=== PATIENT | male | born 1935 | race Caucasian/White ===

== ENCOUNTER → 2016-05-25 | Outpatient (CLI) | payer MEDICARE, BC ==
[~2016-05-25] MED LIST: ACTIGALL300 M1 PO; ALDACTONE25 MG PO; AMPICILLIN TRI500 MG PO; ARTIFICIAL TEAR15 ML OPHTH; ASPIRIN EC325 MG PO; B COMPLETE1 EACH PO; BACTRIM DS1 TAB PO; CALCIUM 500 +1 EAC2 PO; CENTRUM SILVER1 TAB PO; CIPRO500 MG; CIPRO500 MG PO; CLARITIN10 MG PO; DEBROX,CARBAMID15 ML OTIC; DIFLUCAN100 MG PO; FLOMAX0.4 MG PO; IMODIUM2 MG PO; INVANZ 1 G1 GM/100 M IV; KEFLEX500 MG PO; LACTINEX (FLORA1 TAB PO; LAMISIL AT 1% CRE1 % TOP; LEXAPRO20 MG PO; MECLIZINE HCL25 MG PO; MICONAZOLE100 GM TOP; MOBIC15 MG PO; NEURONTIN600 MG PO; NORVASC5 MG PO; PRINIVIL OR ZES10 MG PO; PROBIOTIC1 EAC1 PO; PROTONIX40 MG PO; SALINE NASAL M126 ML NOSE; TYLENOL EXTRA500 MG PO; VITAMIN B-12500 MCG PO; VITAMIN D1000 UNIT PO; ZYPREXA2.5 MG PO; [UNRECOGNIZED DRUG - OTHER] IV
--- NOTE | ~2016-05-25 | ECHO ---
Transthoracic Echocardiography Report (TTE) Demographics Patient Name KURT PEREZ Date of Study 05/25/2016 D Patient Number [id number] Visit Number [id number] Date of 1935 Room Number Accession Number [id number] Gender Male Age 81 year(s) Referring Chance Dennis MD Manager Community Development Ely Gibson Physician RDCS Physician Interpreting Ector Escalera MD Software Performance Engineer Physician Supervising Ordering Physician /MLP Nurse Stress Electrical Instrument Technician Conclusions Contractility Score Summary Normal Left Ventricular contractility was noted. Summary Technically difficult exam. The estimated left ventricular ejection fraction is 60%. Mild concentric left ventricular hypertrophy. Diastolic assessment reveals Grade I diastolic dysfunction. The left atrium is mildly dilated by LA volume index measurement. There is moderate aortic regurgitation by color Doppler. Mild tricuspid regurgitation by color Doppler. There is mild pulmonary hypertension. The pulmonary pressure (RVSP) is 37 mmHg. Procedure Type of Study TTE procedure:2D Echocardiogram. Procedure Date Date: 05/25/2016 Start: 03:41 PM Study Location: Inpatient Portable Indications:Fatigue. Additional Indications:Dizziness Appropriate Use Criteria: 9 Patient Status: Routine HR: 62 bpm BP: 144/65 mmHg M-Mode/2D Measurements LV Diastolic Dimension: 5.55 cm LV Systolic Dimension: 3.62 cm LV Septum Diastolic: 1.18 cm LV PW Diastolic: 1.2 cm AO Root Dimension: 2.5 cm Cardiac Output: 4.55 l/min AV Cusp Separation: 2.5 cm RV Diastolic Dimension: 3.26 cm LA volume: 77 ml LVOT: 2.2 cm LVOT VTI: 19.3 cm TAPSE: 2.78 cm LV Stroke volume: 73.33 ml Doppler Measurements AV Peak Velocity: 1.05 m/s MV Peak E-Wave: 0.5 m/s AV Peak Gradient: 4.41 mmHg MV Peak A-Wave: 0.84 m/s AV Mean Gradient: 2 mmHg MV E/A Ratio: 0.59 LVOT Peak Velocity: 0.96 m/s MV P1/2t: 68 msec AV P1/2t: 474 msec TR Gradient:27.25 mmHg PV Peak Velocity: 0.85 m/s Estimated RAP:10 mmHg PV Peak Gradient: 2.92 mmHg Estimated RVSP: 37 mmHg Estimated PASP: 37.25 mmHg E' Septal Velocity: 0.05 m/s A' Septal Velocity: 0.11 m/s E' Lateral Velocity: 0.06 m/s A' Lateral Velocity: 0.12 m/s Findings Left Ventricle Mild concentric left ventricular hypertrophy. Diastolic assessment reveals Grade I diastolic dysfunction. Right Ventricle Normal right ventricle structure and function. Left Atrium The left atrium is mildly dilated by LA volume index measurement. Right Atrium Normal right atrial size. Mitral Valve Trivial mitral regurgitation by color Doppler. Aortic Valve There is moderate aortic regurgitation by color Doppler. Tricuspid Valve Mild tricuspid regurgitation by color Doppler. There is mild pulmonary hypertension. The pulmonary pressure (RVSP) is 37 mmHg. Pulmonic Valve Normal pulmonic valve structure and function. Pericardial Effusion No evidence of pericardial effusion. Miscellaneous Visualized portions of the aortic root and ascending aorta appear normal in size. Contractility Score LV regional wall motion:(0-Non visualized 1-Normal 2-Hypokinesis 3-Akinesis 4-Dyskinesis 5-Aneurysm) Signature dtt: Jw Barney (cardio) dtd: 05/25/16 1541 Physician Self Edit
== END | disposition disaster alternative care site (69) ==
LOC: GCAR 15:13
DX: R53.82 Chronic fatigue, unspecified (principal); I08.2 Rheumatic disorders of both aortic and tricuspid valves; I27.2 Other secondary pulmonary hypertension; R42 Dizziness and giddiness

== ENCOUNTER 2016-08-06 17:28 | Inpatient (IN) | payer MEDICARE, BC ==
[~2016-08-06] VITALS: Ht 177.8 cm; Wt 85.0 kg
--- NOTE | ~2016-08-06 | HP ---
PATIENT'S NAME: KURT PEREZ [facility] AGE: 81 Y [address] ROOM: [place] [address] LOCATION: [facility] [place] ADMIT DATE: 08/06/2016 History & Physical DISCHARGE DATE: FAMILY PHYSICIAN: NEFTALI BARON MD ATTENDING PHYSICIAN: ELI LIZARRAGA DATE OF SERVICE: CHIEF COMPLAINT: Sepsis, secondary to urinary tract infection. HISTORY OF PRESENT ILLNESS: This is an 81-year-old male who presented to the emergency room with complaints of confusion over the past 2-3 days. The patient's father who is by the bedside reports to me that the patient is generally very independent and lives by himself, but since about yesterday evening while she was talking to him, he was not making a lot of sense, which is very unusual for him, and this confusion continued to worsen and that is when he decided to bring him in here. The patient of note does have a history of recurrent UTI. The patient also reports decreased appetite and decreased p.o. intake over the past several days with some associated nausea and abdominal discomfort in the suprapubic area. The patient also reports some subjective fevers. The patient otherwise denies any cough, shortness of breath, dizziness, lightheadedness, diarrhea, or constipation. PAST MEDICAL HISTORY: The patient has a history of gastric disease, history of recurrent UTIs. FAMILY HISTORY: The patient has a history of hypertension in the family. SOCIAL HISTORY: The patient lives at home alone. No reports of smoking, alcohol, or drug use. PHYSICAL EXAMINATION: VITAL SIGNS: Blood pressure 148/69, pulse 84, respiratory rate 18, temperature 98.1, and temperature max of 101.2, however. GENERAL: Awake, alert, oriented x3, in no acute distress. HEENT: Dry mucosal membranes; however, no conjunctival pallor or scleral icterus noted. CHEST: Clear to auscultation bilaterally. HEART: S1, S2, regular rate and rhythm. ABDOMEN: Soft, nontender, nondistended with positive bowel sounds. SKIN: Without rash or lesions. Has surgical scar over his right knee. NEURO: Grossly nonfocal. PAT[facility]'S [facility]: [facility] AGE: 81 Y [address] ROOM: [place] [id number] LOCATION: [facility] ADMIT DATE: 08/06/2016 History & Physical DISCHARGE DATE: FAMILY PHYSICIAN: NEFTALI BARON MD ATTENDING PHYSICIAN: ELI LIZARRAGA MUSCULOSKELETAL: No joint swelling, erythema, or tenderness noted. LABORATORY DATA: Laboratory results of significance white blood cell count of 15 and the UA with pyuria and bacteriuria. ASSESSMENT AND PLAN: 1. Sepsis, secondary to urinary tract infection. We will start treating him with intravenous fluids and intravenous Rocephin 1 g daily and continue to monitor clinically. The patient denies having history of benign prostatic hypertrophy or any obstructive uropathy, but this is the 2nd or 3rd time, he has had urinary tract infection, and he probably needs to be evaluated for that at some point as outpatient. 2. Acute encephalopathy, this is related to sepsis, secondary to urinary tract infection. We will manage as above. 3. Hypertension. Continue lisinopril 10 mg daily. 4. History of benign prostatic hypertrophy. Continue home medications. 5. Gastroesophageal reflux disease. Continue proton pump inhibitor therapy. 6. Deep venous thrombosis prophylaxis. We will use subcutaneous heparin. MD CALEB MERINO/alekseyl /[id number] D: [id number] T: [id number] HISTORY & PHYSICAL
--- NOTE | ~2016-08-06 | ER ---
PATIENT'S NAME: [facility] Christa [facility] AGE: 81 Y [address] ROOM: [address] [address] [place] [facility] [place]MIT DATE: 08/06/2016 ER/Outpatient Report DISCHARGE DATE: FAMILY PHYSICIAN: NEFTALI BARON MD ATTENDING PHYSICIAN: ELI AREVALO Time of Arrival: 1731 hours. Time of Exam: 1731 hours. CHIEF COMPLAINT: Confusion. HISTORY OF PRESENT ILLNESS: The patient arrives per wheelchair accompanied by his son. Son is concerned that the patient has had some mental changes this afternoon. The patient does live independently at home. Son had checked on him last night, he seemed fine. Today about 3 hours prior to arrival, the patient's neighbor had called the son, the patient had gone to their house and did not seem to be making sense when he was chatting with him. The patient states he feels okay. He states his right leg is painful, but he has had pain in his right leg ever since he had surgery on it several months ago. ALLERGIES: THE PATIENT HAS NO KNOWN ALLERGIES. CURRENT MEDICATIONS: On his chart and reviewed by me. PAST MEDICAL HISTORY: Gout, hypertension, sleep apnea, vitamin D deficiency, vitamin B12 deficiency, emphysema, and Gaucher disease. PAST SURGERIES: Cholecystectomy, splenectomy, ERCP in November of 2014, total left hip, and surgery of the right knee to remove screws and repair. SOCIAL HISTORY: He does not smoke, quit smoking approximately 6-1/2 years ago. Denies use of drugs and alcohol. He does live alone. REVIEW OF SYSTEMS: All negative other than those mentioned in the HPI. PHYSICAL EXAMINATION: VITAL SIGNS: He weighed 79.9 kg, blood pressure is 154/72, pulse is 97, PATIENT'S NAME: [facility] Christa [facility] AGE: 81 Y [address] ROOM: [address] [address] [place] [facility] [place]MIT DATE: 08/06/2016 ER/Outpatient Report DISCHARGE DATE: FAMILY PHYSICIAN: NEFTALI ABRON MD ATTENDING PHYSICIAN: ELI AREVALO respirations 16, temperature of 102.7 tympanic, and O2 saturation is 91% on room air. Ami Coma Scale is 15. GENERAL: He is awake and alert. He is able to state his name, he knows where he is at, but he does not know the date. He is able to state the president and conference services director. He does have some difficulty expressing his words, but his speech is clear and easy to understand. He is calm and cooperative. SKIN: [place], warm, and dry. He does have a red lacy rash of his upper thighs. CHEST: Respirations are even and nonlabored. Lung sounds are clear throughout. HEART: Regular rate and rhythm. ABDOMEN: Soft, nondistended. Bowel sounds are present. EMERGENCY ROOM COURSE: Saline lock was initiated. Fluids of normal saline were started at a TKO rate. He was given Tylenol 1000 mg. DIAGNOSTIC DATA: Lab work was drawn. CBC shows a white count of 15.8. Chem Panel: Sodium is 135, potassium is 4.5, chloride is 101, BUN is 27 with creatinine of 1.2, and GFR is 58. CPK was 34, CK-MB was less than 0.5, troponin was normal. ProBNP is 476. Lactate is 1.6. Procalcitonin is normal. Clean-catch UA is positive for leukocytes, positive for blood. Micro shows packed field of white blood cells and many bacteria. EKG shows demand atrial pacing with first-degree AV block. CT of the head was completed, it was normal. IMPRESSION: Sepsis due to UTI Encephalopathy PLAN: The patient's vital signs remained stable throughout the ER visit. I did talk with Dr. Arevalo, the hospitalist. The patient is to be admitted inpatient for sepsis with UTI and acute encephalopathy. The patient and his son are aware of plan of care. YONY FISHER APRN FOR MD FELIX GANT/alekseyl /[id number] d: 08/07/16 0053 t: 08/17/16 1741, OUTPATIENT REPORT
--- NOTE | ~2016-08-06 | DS ---
PATIENT'S NAME: KURT PEREZ [facility] AGE: 81 Y [address] ROOM: [place] [address] [place] [facility] [place] ADMIT DATE: 08/06/2016 Discharge Summary DISCHARGE DATE: 08/08/2016 FAMILY PHYSICIAN: Sonny Fletcher MD ATTENDING PHYSICIAN: Haylie Arevalo PRIMARY DIAGNOSES: 1. Sepsis. 2. Acute encephalopathy. 3. Funguria. Chronic conditions include obstructive sleep apnea and chronic diarrhea. PRINCIPAL PROCEDURES: Done for the patient, none was indicated. LABORATORY DATA: On admission: WBC on admission was 15.8, prior to discharge was 7.7; H and H on admission was 13.1/37.3, prior to discharge was 11.7/37.4; platelet was stable at 394. On admission, creatinine was 1.2, prior to discharge was 0.8; sodium on admission was 135, prior to discharge was 144; potassium was stable at 4.5 and became 4.3 upon discharge; bicarb was stable at 22, prior to discharge was 24; BUN on admission was 27, prior to discharge was 19. Liver function tests: AST was stable at 28, ALT of 31. UA on admission leukocytes 500, nitrite negative, wbc full field, yeast many, bacteria many. Procalcitonin 0.72. Urine culture, [id number] colony-forming units, repeat is the same. Blood culture, no growth until discharge. RADIOLOGY: His chest x-ray was reported as streaky right basilar atelectasis and fibrosis present, bibasilar fibrotic changes are present, mid and upper lungs are clear. No pleural effusion or pneumothorax is identified. Cardiac silhouette is within normal limits. CT head: Mild stable prominence of the ventricles with no acute ischemia or hemorrhage. HOSPITAL COURSE: For history of present illness, please take a look at the H and P which was done by Dr. Arevalo. The patient was admitted to Medical/Surgical Unit, presented with some acute encephalopathy characterized by some confusion. So the working diagnosis on admission was possibly the etiology of this acute encephalopathy maybe sepsis and the line of thought was probably secondary to urinary tract infection. So, the patient was started on Rocephin right from the first day of the hospital stay. By the next day of his hospital stay, the patient's mentation had returned to baseline and he was requesting to be discharged. Clinically, the patient looked pretty stable, looked bright, and his urine culture by this time had come back positive for yeast. A repeat urine culture was done while the patient was continuing on Rocephin. His blood cultures remained negative. The patient continued to make good clinical progress, his mentation had returned to baseline and by the second day of his hospital stay, the patient remained the same, bright, PATIENT'S NAME: KURT PEREZ [facility] AGE: 81 Y [address] ROOM: [id number] [place], [place] [address] [place]: [facility] [place]MIT DATE: 08/06/2016 Discharge Summary DISCHARGE DATE: 08/08/2016 FAMILY PHYSICIAN: Sonny Fletcher MD ATTENDING PHYSICIAN: Haylie Arevalo wanting to go home. By this point, he had not had any fevers throughout his hospital stay, blood pressure remained stable, blood cultures remained negative; however, his repeat urine culture still came back positive for yeast, and plan was to start the patient on fluconazole given his other comorbidities and for him to be on fluconazole for at least 1 week. On the day of discharge, the patient's vital signs were stable and was discharged home. DISCHARGE PLAN: The patient is to follow with his regular family doctor in the next 1 week who would recheck his urine culture. The patient also would like to follow with Dr. Wright for his history of recurrent urinary tract infection. MEDICATIONS ON DISCHARGE: 1. Lexapro 10 mg p.o. daily. 2. Fluconazole 100 mg p.o. daily for a total of 7 days. 3. Lactobacillus 1 tablet p.o. twice daily. 4. Protonix 40 mg p.o. daily. 5. Flomax 0.4 mg p.o. daily. 6. Calcium and vitamin D 500 mg p.o. daily. 7. Cerezyme 400 units IV every 21 days. 8. Vitamin B12 1000 mcg p.o. daily. 9. Claritin 10 mg p.o. daily. 10. Centrum tablet 1 tablet p.o. daily. 11. Vitamin D3 2000 units p.o. daily. 12. Lisinopril 10 mg p.o. daily. 13. Aldactone 25 mg p.o. daily. 14. Actigall 300 mg p.o. daily. 15. Neurontin 600 mg p.o. 4 times daily p.r.n. 16. Meclizine 25 mg p.o. daily p.r.n. 17. B complex 1 tablet p.o. daily. 18. Debrox otic drops 2 drops every 7 days. 19. Tylenol 650 mg q.4 hours p.r.n. 20. Imodium 2 mg p.o. daily p.r.n. 21. Nasal saline spray. 22. Artificial Tears. LEEANNA SAMPSON MD ODO/lance PATIENT'S NAME: KURT PEREZ [facility] AGE: 81 Y [address] ROOM: [place] [address] [place]: [facility] [place] ADMIT DATE: 08/06/2016 Discharge Summary DISCHARGE DATE: 08/08/2016 FAMILY PHYSICIAN: Sonny Fletcher MD ATTENDING PHYSICIAN: Haylie Arevalo /[id number] d: [id number]/08/162133 t: 08/19/16 1642, DISCHARGE SUMMARY
[~2016-08-06 17:28] MED LIST changes: -AMPICILLIN TRI500 MG PO; -ARTIFICIAL TEAR15 ML OPHTH; -DIFLUCAN100 MG PO; -IMODIUM2 MG PO; -SALINE NASAL M126 ML NOSE
[2016-08-06 17:50] LABS: BILIRUBIN URINE NEGATIVE (NEGATIVE); BLOOD URINE 250 /UL (NEGATIVE); GLUCOSE URINE NEGATIVE (NEGATIVE); KETONE URINE 5 mg/dL (NEGATIVE); LEUKOCYTES URINE 500 /UL (NEGATIVE); NITRITE URINE NEGATIVE (NEGATIVE); PROTEIN URINE 15 mg/dL (NEGATIVE); SPEC GRAVITY URINE 1.015 (1.003-1.035); UROBILINOGEN URINE 4 mg/dL (NORMAL)
[2016-08-06 17:53] LABS: COLOR URINE YELLOW (YELLOW); TURBIDITY URINE 3+ (CLEAR)
[2016-08-06 18:08] LABS: RBC URINE 20-50 #/HPF (NEGATIVE); WBC URINE PACKED FIELD #/HPF (NEGATIVE)
[2016-08-06 18:09] LABS: BACTERIA URINE MANY (NEGATIVE)
[2016-08-06 18:11] LABS: MUCUS URINE 1+ (NEGATIVE); YEAST URINE MANY (NEGATIVE)
[2016-08-06 18:19] LABS: BASOPHIL # 0.1 K/uL (0.0-0.2); BASOPHIL % 0.3 %; EOSINOPHIL # 0.1 K/uL (0.0-0.5); EOSINOPHIL % 0.4 %; HEMATOCRIT 37.8 % (33.0-50.0); HEMOGLOBIN 13.1 g/dL (11.0-16.0); IMMATURE GRANULOCYTE # 0.1 K/uL (0.0-0.3); IMMATURE GRANULOCYTE % 0.4 %; LYMPHOCYTE # 1.8 K/uL (0.8-4.0); LYMPHOCYTE % 11.1 %; MCHC 34.7 gm/dL (32.0-36.5); MCV 98.2 fl (83.0-98.0); MONOCYTE # 2.3 K/uL (0.0-1.0); MONOCYTE % 14.6 %; MPV 9.5 fl (9.4-12.4); NEUTROPHIL # (ANC) 11.6 K/uL (1.4-9.0); NEUTROPHIL % 73.2 %; NRBC % 0 /100WBC (0-0.00); PLATELET COUNT 394 K/uL (150-450); RBC 3.85 M/uL (3.50-5.50); RDW-CV 14.8 % (11.9-14.6); WBC 15.8 K/uL (4.0-11.0)
[2016-08-06 18:35] LABS: PROTIME 10.5 SECONDS (9.8-11.4); PTT 24 SECONDS (25-32)
[2016-08-06 18:41] LABS: ALBUMIN 3.4 gm/dL (3.5-5.0); ALK PHOS 280 IU/L (33-138); ALT 31 IU/L (12-78); ANION GAP 16.5 (10.0-19.0); AST 28 IU/L (10-40); BLOOD UREA NITROGEN 27 mg/dL (6-24); CALCIUM 9.6 mg/dL (8.5-10.5); CHLORIDE 101 mMol/L (96-110); CO2 22 mMol/L (22-32); CPK 34 IU/L (35-332); CREATININE 1.2 mg/dL (0.6-1.3); ESTIMATED GFR (MDRD EQUATION) 58; POTASSIUM 4.5 mMol/L (3.7-5.1); SODIUM 135 mMol/L (135-145); TOTAL PROTEIN 6.5 g/dL (6.0-8.4)
[2016-08-06 18:43] LABS: TOTAL BILIRUBIN 2.9 mg/dL (0.0-1.5)
[2016-08-06] MEDS ORDERED: IMODIUM2 MG PO (20:43)
[2016-08-06] MEDS ORDERED: SALINE NASAL M126 ML NOSE (20:44)
[2016-08-06] MEDS ORDERED: ARTIFICIAL TEAR15 ML OPHTH (20:45)
--- NOTE | 2016-08-07 04:31 | NUR ---
Pt. admitted for urosepsis. DNR. Brought to ER by son because pt. was acting confused and not making sense. Has been oriented since being on the floor with some forgetfulness. ER found temp to be 102.7. ER gave IV Rocephen. Gave 1g of tylenol and temp went down to 100.6. RA. Incontinent of urine. Hx. of emphysema, HTN, COPD, sleep apnea, gout, Goucher's disease. R) leg sore with knee brace - had surgery couple of years ago and again last February for a bad infx. at that time as well. Increased WBC, Procalcitonin, PTT 24. Pt. SBP remains in low 100 and HR in 50's. Temp ranges from 96-98 tympanic. General diet. IV L) Forearm with IVF at 75ml/hour for only IL of fluids.
[2016-08-07 05:14] LABS: BASOPHIL % 0.3 %; EOSINOPHIL # 0.3 K/uL (0.0-0.5); EOSINOPHIL % 2.3 %; HEMATOCRIT 33.2 % (33.0-50.0); HEMOGLOBIN 11.3 g/dL (11.0-16.0); IMMATURE GRANULOCYTE % 0.4 %; LYMPHOCYTE # 2.1 K/uL (0.8-4.0); LYMPHOCYTE % 20.1 %; MCH 33.7 pg (27.0-34.0); MCV 99.1 fl (83.0-98.0); MONOCYTE # 1.9 K/uL (0.0-1.0); MONOCYTE % 18.2 %; MPV 9.5 fl (9.4-12.4); NEUTROPHIL # (ANC) 6.3 K/uL (1.4-9.0); NEUTROPHIL % 58.7 %; NRBC % 0 /100WBC (0-0.00); PLATELET COUNT 360 K/uL (150-450); RBC 3.35 M/uL (3.50-5.50); RDW-CV 14.8 % (11.9-14.6); WBC 10.7 K/uL (4.0-11.0)
[2016-08-07 05:28] LABS: ALBUMIN 2.8 gm/dL (3.5-5.0); ANION GAP 12.4 (10.0-19.0); BLOOD UREA NITROGEN 27 mg/dL (6-24); CALCIUM 9.1 mg/dL (8.5-10.5); CHLORIDE 104 mMol/L (96-110); CO2 26 mMol/L (22-32); CREATININE 1.1 mg/dL (0.6-1.3); ESTIMATED GFR (MDRD EQUATION) > 60; MAGNESIUM 2.3 mg/dL (1.8-2.6); PHOSPHORUS 2.4 mg/dL (2.5-4.9); POTASSIUM 4.4 mMol/L (3.7-5.1); SODIUM 138 mMol/L (135-145)
--- NOTE | 2016-08-07 09:41 | NUR ---
PT SCREENED D/T MST. WT DOWN 3# x 5 MONTHS - NOT SIGNIFICANT. WILL ASSIST NEEDED.
--- NOTE | 2016-08-07 16:11 | NUR ---
Significant event: Patient is alert and oriented. VSS. Temp this A.M. was 99.1 then 98.4. On room air. Uses urinal at bedside. Has had loose stool today, c-diff sent, also a urine culture was sent. No results at this time of note. IV to left forearm is saline locked. Eating and drinking well. Uses walker, gait belt, and stand by assist for ambulation. Ambulated in [place] x1. Needs to ambulate more this evening. No complaints of pain. Is to wear cpap at night. Cooperative with cares.
--- NOTE | 2016-08-08 04:19 | NUR ---
Significant Event:Uneventful night, up to bathroom about 3 times and passed mostly gas had a very small BM. Refuses any pain medication believing it will upset his stomach if he takes it. Alert and orientated but can be forgetful at times. No fevers vitals mostly stable slighty hyperstensive on second assessment with b/p of 147/72. Follow up: Continue to monitor.
[2016-08-08 05:07] LABS: BASOPHIL # 0.1 K/uL (0.0-0.2); BASOPHIL % 0.7 %; EOSINOPHIL # 0.3 K/uL (0.0-0.5); EOSINOPHIL % 3.3 %; HEMATOCRIT 34.7 % (33.0-50.0); HEMOGLOBIN 11.7 g/dL (11.0-16.0); IMMATURE GRANULOCYTE % 0.3 %; LYMPHOCYTE # 2.2 K/uL (0.8-4.0); LYMPHOCYTE % 29.2 %; MCH 33.3 pg (27.0-34.0); MCHC 33.7 gm/dL (32.0-36.5); MCV 98.9 fl (83.0-98.0); MONOCYTE # 1.4 K/uL (0.0-1.0); MONOCYTE % 18.4 %; MPV 9.6 fl (9.4-12.4); NEUTROPHIL # (ANC) 3.7 K/uL (1.4-9.0); NEUTROPHIL % 48.1 %; NRBC % 0 /100WBC (0-0.00); PLATELET COUNT 374 K/uL (150-450); RBC 3.51 M/uL (3.50-5.50); RDW-CV 14.6 % (11.9-14.6); WBC 7.7 K/uL (4.0-11.0)
[2016-08-08 05:20] LABS: ANION GAP 14.3 (10.0-19.0); BLOOD UREA NITROGEN 19 mg/dL (6-24); CALCIUM 8.9 mg/dL (8.5-10.5); CHLORIDE 110 mMol/L (96-110); CO2 24 mMol/L (22-32); CREATININE 0.8 mg/dL (0.6-1.3); ESTIMATED GFR (MDRD EQUATION) > 60; MAGNESIUM 2.3 mg/dL (1.8-2.6); POTASSIUM 4.3 mMol/L (3.7-5.1); SODIUM 144 mMol/L (135-145)
[2016-08-08] MEDS ORDERED: DIFLUCAN100 MG PO (13:54)
--- NOTE | 2016-08-08 19:41 | NUR ---
Discharge summary: Patient is alert and oriented x3. VSS. On room air. IV dc'd at 1400 with no complications. Pt did have small BM today. Voiding good, no complaints with it. Also no complaints of pain. Eating and drinking well. Went over the dismissal intructions with pt and son, copy sent with them. Prescriptions sent with patient and educated him on the new ones.Copies of education on Diflucan and Urosepsis given. Also went over prevention of DVT's with pt. Patient verbalized understanding. Pt also instructed to make follow up appts with Dr Wright and Dr Fletcher, contact information given. patient was wheeled to north front doors.
== END 2016-08-08 14:15 | disposition disaster alternative care site (69) | DRG 871 ==
LOC: GMED 17:28 → GMSU 19:48
PROVIDERS: Hospitalist; Nurse Practitioner Family; ADMIT Internal Medicine
DX: A41.9 Sepsis, unspecified organism (principal); G93.40 Encephalopathy, unspecified; I10 Essential (primary) hypertension; K21.9 Gastro-esophageal reflux disease without esophagitis; N40.0 Benign prostatic hyperplasia without lower urinary tract symptoms; G47.33 Obstructive sleep apnea (adult) (pediatric); K52.9 Noninfective gastroenteritis and colitis, unspecified; Z66 Do not resuscitate
CPT/HCPCS: J0696; J1644; J7030; J7040

== ENCOUNTER → 2016-09-29 | Outpatient (CLI) | payer MEDICARE, BC ==
[~2016-09-29] MED LIST changes: +AMPICILLIN TRI500 MG PO; +ARTIFICIAL TEAR15 ML OPHTH; +DIFLUCAN100 MG PO; +IMODIUM2 MG PO; +SALINE NASAL M126 ML NOSE
== END | disposition disaster alternative care site (69) ==
LOC: LKUC 16:17
DX: N39.0 Urinary tract infection, site not specified (principal); R50.9 Fever, unspecified

== ENCOUNTER 2016-10-02 17:31 | Inpatient (IN) | payer MEDICARE, BC ==
[~2016-10-02] VITALS: Ht 177.8 cm; Wt 79.8 kg
--- NOTE | ~2016-10-02 | HP ---
PATIENT'S NAME: KURT PEREZ [facility] AGE: 81 Y [address] ROOM: [place] [address] LOCATION: [facility] ADMIT DATE: 10/02/2016 History & Physical DISCHARGE DATE: FAMILY PHYSICIAN: NEFTALI BARON MD ATTENDING PHYSICIAN: NICOLAS ROCK DATE OF SERVICE: CHIEF COMPLAINT: Fall. HISTORY OF PRESENT ILLNESS: An 81-year-old gentleman with a past medical history of Gaucher disease, receives replacement enzymes with infusion every month, also have history of recurrent UTIs, presented to the emergency department after he had a fall in his bathroom. The circumstances of fall are not very clear. He lives by himself. History from son, it appears that whenever he gets a urinary tract infection, he gets confused and can have falls. On my encounter, he is comfortable. He has some abrasion on the nose from the fall. He denies any chest pain, any shortness of breath, any abdominal pain, any burning on urination, any constipation, any diarrhea. He does complain of some pain in the knee, which he says has been ongoing problem for him for a long time with multiple hardware placement as well as removal and as well as infection in the knee joint actually on the right side. He is supposed to wear a brace, but he does not wear a brace. He did endorse having fever and chills yesterday as well as this morning. Denied any PND, orthopnea, or leg swelling. REVIEW OF SYSTEMS: All other systems reviewed and were negative except for what is mentioned in the HPI. PAST MEDICAL HISTORY: Significant for recurrent UTIs as well as Gaucher disease. FAMILY HISTORY: Significant for hypertension. SOCIAL HISTORY: Lives at home alone. No ongoing toxic habits. MEDICATIONS: Please see MAR. PHYSICAL EXAMINATION: VITAL SIGNS: Blood pressure 160/70, heart rate of 95, fever 101.3, PATIENT'S NAME: KURT PEREZ [facility] AGE: 81 Y [address] ROOM: [address] [place] [address] LOCATION: [facility] ADMIT DATE: 10/02/2016 History & Physical DISCHARGE DATE: FAMILY PHYSICIAN: NEFTALI BARON MD ATTENDING PHYSICIAN: NICOLAS ROCK respiratory rate of 20. GENERAL: No acute distress. Alert and oriented x3. HEAD: There are some bruises on the nose. Eyes; nonicteric. No pallor. Oropharynx; dry mucous membranes. CARDIOVASCULAR: Tachycardic, S1, S2. No murmurs, gallops, or rubs. LUNGS: Clear to auscultation bilaterally. ABDOMEN: Soft, nontender, nondistended. Bowel sounds are present. EXTREMITIES: Did not reveal any edema. PSYCH: Normal affect, mood, and speech. NEUROLOGIC: Cranial nerves 2 through 12 intact. No motor or sensory deficit. MUSCULOSKELETAL: Right knee mildly tender, which he states is at baseline, warm, but comparable to the left knee. LYMPHATIC: No lymphangiitis or lymphadenopathy noted. ENDOCRINE: No thyromegaly or cushingoid features noted. IMAGING: A chest x-ray was done in the emergency department, which appears that it have the similar fibrotic basilar changes from the past. [place] [address], platelets of 397, BUN 27, creatinine 1.4, total bilirubin is elevated at 1.8, and alkaline phosphatase of 345. Urinalysis is grossly positive for urinary tract infection. Procalcitonin is elevated at 1.01. ASSESSMENT: 1. Severe sepsis secondary to acute pyelonephritis. 2. Acute pyelonephritis. 3. Elevated liver enzymes. 4. Acute kidney injury. 5. Gaucher disease. PLAN: We are going to admit this patient to inpatient x0 for sepsis identification was 1814. Two sets of blood cultures have been drawn. We will give him 2 L of IV fluids. Broad-spectrum antibiotics directed at urinary tract infection with Rocephin have been started. Lactate level was 1.7. We will re-evaluate that as well and repeat procalcitonin. Urine analysis and cultures have been sent. We will re-evaluate the patient in his blood numbers as well as lactic acid and perfusion assessment. Of note, the patient was at Dr. Wright's clinic not so long ago where he was prescribed Diflucan 100 mg p.o. b.i.d. I tried to reach Dr. Wright and left a voice mail, but could not reach him. I am going to continue Diflucan at this rate. He tells me he had Gaucher disease, get enzyme replacement therapy at Dr. Salcidos every month. I am not so sure about his elevated alkaline phosphatase and total bilirubin. AST and ALT are unremarkable. I will get an PATIENT'S NAME: KURT PEREZ [facility] AGE: 81 Y [address] ROOM: [id number] [place] [id number] LOCATION: [facility] ADMIT DATE: 10/02/2016 History & Physical DISCHARGE DATE: FAMILY PHYSICIAN: NEFTALI BARON MD ATTENDING PHYSICIAN: NICOLAS ROCK ultrasonography of the right upper quadrant in the morning. Right knee radiography can be considered in the morning if the tenderness and the warmth persist as compared to the other leg tomorrow morning. An orthopedic consultation can be considered. We are going to provide DVT prophylaxis in terms of heparin. Diet, regular diet and we will follow this patient. MD CATINA BURNHAM/lance /[id number] D: [id number] T: [id number] HISTORY & PHYSICAL
--- NOTE | ~2016-10-02 | ER ---
PATIENT'S NAME: KURT PEREZ [facility] AGE: 81 Y [address] ROOM: [place] [address] LOCATION: GPCU ADMIT DATE: 10/02/2016 ER/Outpatient Report DISCHARGE DATE: FAMILY PHYSICIAN: NEFTALI BARON MD ATTENDING PHYSICIAN: NICOLAS ROCK TIME OF ARRIVAL: 1734 hours. TIME OF EXAM: 1734 hours. CHIEF COMPLAINT: Fall. HISTORY OF PRESENT ILLNESS: The patient arrived per [facility] ambulance with IV going in the left arm, fluids of normal saline are infusing at a wide-open rate, he is on O2 at 2 L per nasal cannula. The patient reports he is not really quite sure how he ended up falling in the bathroom, son found him just prior to arrival in his bathroom, potentially fell there around lunchtime as his lunch was still on the counter. The patient's son reports that the patient has been getting weaker and slightly confused. Son states he was diagnosed recently with a UTI and started on some medicine. The patient denies having any pain except in the right knee. He states he has had problems with his right knee for quite sometime and it continues to be sore. He denies feeling short of breath. He has not had any chest pain. Denies being nauseated. No vomiting. He has not had any change in his bowel or bladder pattern. Denies hitting his head. Denies having a headache. It is unsure if he had any loss of consciousness at the time of the fall. ALLERGIES: NO KNOWN ALLERGIES. CURRENT MEDICATIONS: Current medications are on his chart and were reviewed by me. PAST MEDICAL HISTORY: Includes Gaucher's disease, hypertension, BPH, vitamin deficiencies, emphysema, and sleep apnea. PAST SURGERIES: Cholecystectomy, splenectomy, ERCP in November of 2014, total left hip, and total right knee with revisions needed due to infection. PATIENT'S NAME: KURT PEREZ [facility] AGE: 81 Y [address] ROOM: [place] [address] LOCATION: GPCU ADMIT DATE: 10/02/2016 ER/Outpatient Report DISCHARGE DATE: FAMILY PHYSICIAN: NEFTALI BARON MD ATTENDING PHYSICIAN: NICOLAS ROCK SOCIAL HISTORY: The patient lives at home alone. Son does check on him on a regular basis. Denies use of tobacco, drugs, or alcohol. REVIEW OF SYSTEMS: All negative other than those mentioned in the HPI. PHYSICAL EXAMINATION: VITAL SIGNS: He weighed 81.5 kg. Blood pressure is 140/62, pulse of 96, respirations 20, temp of 101.3, tympanic, and O2 sats 94% with O2 at 2 L per nasal cannula. GENERAL: He is awake, alert, and oriented x4. SKIN: Ryan, warm, and dry. RESPIRATIONS: Even and nonlabored. HEENT: Pupils are equal and reactive to light. Extraocular movement is intact. TMs are pearly jeronimo. Nasal is clear. Oropharynx is clear. Mucous membranes are pink and moist. NECK: Supple. No lymphadenopathy. Denies any pain when palpating along his neck and back. LUNGS: Lung sounds were clear throughout. HEART: Regular rate and rhythm. ABDOMEN: Soft and nondistended. Bowel sounds are present. EXTREMITIES: He does have abrasion to the left anterior knee. He has a skin tear along the right forearm area. LABORATORY DATA: Lab work was obtained. EKG was done, it shows a sinus rhythm with PACs. First-degree AV block. CBC shows a white count of 20.4, hemoglobin 13.2 with hematocrit of 39. Chem panel sodium is 135, potassium is 4.5 chloride 102, his BUN is 27 with creatinine of 1.1, GFR 49, CPK is 35, CK-MB is less than 0.5, troponin was normal, lactate was 1.7, procalcitonin is 1.06. Venous pH is 7.4. Clean-catch UA was obtained, it shows 500 leukocytes, negative nitrites. Micro shows full-field white blood cells and rare bacteria. Urine is cultured. CT of the head was completed. Radiologist reports it is stable from his last CT, which was in July of 2016. He does have some atrophy, but it has not changed. X-ray of his knees were completed. No bony abnormalities are seen. EMERGENCY DEPARTMENT COURSE: Dr. Carroll was consulted regarding the patient. The patient does meet sepsis criteria. Dr. Perez was contacted. IMPRESSION: 1. Sepsis due to pyelonephritis. 2. Fall. PATIENT'S NAME: AMADOR CITYKURT MOHR [facility] AGE: 81 Y [address] ROOM: [id number] [place], [place] [id number] [facility] ADMIT DATE: 10/02/2016 ER/Outpatient Report DISCHARGE DATE: FAMILY PHYSICIAN: NEFTALI BARON MD ATTENDING PHYSICIAN: NICOLAS ROCK PLAN: The patient will be admitted for Hospitalist Services. I did do a chest x-ray and gave him a gram of Rocephin prior to going upstairs. Dr. Perez did come down and evaluate the patient. YONY FISHER APRN FOR DO [facility]EL[facility] SANTIAGO/lance /[id number] d: 10/03/16 0146 t: 10/11/162032, OUTPATIENT REPORT
--- NOTE | ~2016-10-02 | DS ---
[facility] AGE: 81 Y [address] ROOM: [place] [address] LOCATION: GPCU ADMIT DATE: 10/02/2016 Discharge Summary DISCHARGE DATE: 10/05/2016 FAMILY PHYSICIAN: Sonny Fletcher MD ATTENDING PHYSICIAN: Grupo Romero PRIMARY DIAGNOSES: 1. Severe sepsis. 2. Urinary tract infection. 3. Benign prostatic hypertrophy with urinary retention. 4. Acute kidney injury. 5. Generalized weakness. 6. Elevated liver function tests. 7. Cholestasis. 8. Acute enteritis. 9. Gaucher disease. OPERATIONS AND PROCEDURES: CT scan of the brain was obtained on 10/02/2016, negative for any acute intracranial process. CT scan of the abdomen and pelvis negative for any acute intraabdominal process, but bladder wall thickening noted. There was also pneumobilia seen on previous imaging studies. Abdominal ultrasound obtained on 10/03/2016 negative for any intra or extrahepatic biliary dilatation. HISTORY OF PRESENTING ILLNESS/REASON FOR ADMISSION: Please refer to the H and P dictated on 10/02/2016. HOSPITAL COURSE: The patient was admitted to hospital as noted above with a presumptive diagnosis of severe sepsis. Urinary tract infection was suspected. Cultures had revealed Teresa tropicalis serially. This included outpatient cultures obtained through the urologist's office. Interestingly, followup cultures here were also polymicrobial, demonstrating Staphylococcus haemolyticus and Enterococcus faecalis. He had been maintained on IV antibiotic therapy with Rocephin over the course of his hospital stay, but ultimately it was felt this could be safely transitioned to an oral regimen with ampicillin. There was some mild concern for a biliary source of infection. Initial CT scanning did show pneumobilia, although this finding had been demonstrated on previous imaging studies. He was relatively asymptomatic, except for some profuse diarrhea at the point of admission. Abdominal ultrasound did not show any significant biliary ductal dilatation. Subsequently, he received some symptomatic treatment for the diarrhea and it resolved. He did receive physical therapy and occupational therapy for strengthening and PATIENT'S NAME: [facility] Christ[facility] AGE: 81 Y [address] ROOM: [place] [address] LOCATION: GPCU ADMIT DATE: 10/02/2016 Discharge Summary DISCHARGE DATE: 10/05/2016 FAMILY PHYSICIAN: Sonny Fletcher MD ATTENDING PHYSICIAN: Grupo Romero and showed some improvement with that. He continued to receive variety of supportive cares. By the end of the 4th day of his hospital stay, it was felt he would be stable enough for discharge to home with plans for close clinical followup with his primary care provider as well as outpatient followup with Dr. Wright, Urology. DISCHARGE INSTRUCTIONS: Diet: Regular as tolerated. Activity: As tolerated. MEDICATIONS: 1. Diflucan 100 mg p.o. daily x1 month. 2. Ampicillin 500 mg p.o. q.6 hours x5 more days. 3. Artificial Tears 1-2 drops each eye q.i.d. p.r.n. 4. Sodium chloride nasal spray 2 sprays each nostril daily p.r.n. 5. Debrox Otic drops 2 drops to each ear daily. 6. Vitamin B complex daily. 7. Meclizine 25 mg p.o. daily p.r.n. 8. Gabapentin 1200 mg p.o. b.i.d. p.r.n. 9. Ursodiol 300 mg p.o. q.h.s. 10. Spironolactone 25 mg p.o. daily. 11. Vitamin D3 a 1000 units p.o. daily. 12. Vitamin B12 a 1000 mcg p.o. daily. 13. Cerezyme 4000 units IV q.21 days. 14. Calcium with vitamin D 500 mg p.o. daily. 15. Imodium 2 mg p.o. daily p.r.n. 16. Acetaminophen 500 mg p.o. daily p.r.n. 17. Flomax 0.4 mg p.o. daily. 18. Protonix 40 mg p.o. daily. 19. Loratadine 10 mg p.o. daily. 20. Lisinopril 10 mg p.o. daily. 21. Lactinex 1 tablet p.o. daily. 22. Lexapro 20 mg p.o. q.h.s. 23. Multivitamin daily. FOLLOWUP: He will follow up with Dr. Wright in 1 month. He will follow up with Dr. Fletcher, his primary care provider, in 5-7 days. CONDITION ON DISCHARGE: Fair. Total time spent on discharge process, 45 minutes. PATIENT'S NAME: KURT PEREZ [facility] AGE: 81 Y [address] ROOM: [place] [address] LOCATION: [facility] ADMIT DATE: 10/02/2016 Discharge Summary DISCHARGE DATE: 10/05/2016 FAMILY PHYSICIAN: Sonny Fletcher MD ATTENDING PHYSICIAN: Grupo Romero MD AJS/lance /[id number] d: 10/06/16 0401 t: 10/09/16 0832, DISCHARGE SUMMARY
[~2016-10-02 17:31] MED LIST changes: -AMPICILLIN TRI500 MG PO
[2016-10-02 17:54] LABS: BILIRUBIN URINE NEGATIVE (NEGATIVE); BLOOD URINE 25 /UL (NEGATIVE); COLOR URINE YELLOW (YELLOW); GLUCOSE URINE NEGATIVE (NEGATIVE); KETONE URINE NEGATIVE (NEGATIVE); LEUKOCYTES URINE 500 /UL (NEGATIVE); NITRITE URINE NEGATIVE (NEGATIVE); PROTEIN URINE 15 mg/dL (NEGATIVE); SPEC GRAVITY URINE 1.015 (1.003-1.035); TURBIDITY URINE 2+ (CLEAR); UROBILINOGEN URINE NORMAL (NORMAL)
[2016-10-02 18:01] LABS: WBC URINE FULL FIELD #/HPF (NEGATIVE)
[2016-10-02 18:02] LABS: BACTERIA URINE RARE (NEGATIVE); EPITHELIAL URINE NEGATIVE #/HPF (NEGATIVE); RBC URINE NEGATIVE #/HPF (NEGATIVE)
[2016-10-02 18:06] LABS: BASOPHIL # 0.1 K/uL (0.0-0.2); BASOPHIL % 0.2 %; EOSINOPHIL % 0.1 %; HEMOGLOBIN 13.2 g/dL (11.0-16.0); IMMATURE GRANULOCYTE # 0.1 K/uL (0.0-0.3); IMMATURE GRANULOCYTE % 0.5 %; LYMPHOCYTE # 1.5 K/uL (0.8-4.0); LYMPHOCYTE % 7.3 %; MCH 34.5 pg (27.0-34.0); MCHC 33.8 gm/dL (32.0-36.5); MCV 101.8 fl (83.0-98.0); MONOCYTE # 2.4 K/uL (0.0-1.0); MONOCYTE % 11.6 %; MPV 9.2 fl (9.4-12.4); NEUTROPHIL # (ANC) 16.4 K/uL (1.4-9.0); NEUTROPHIL % 80.3 %; NRBC % 0 /100WBC (0-0.00); PLATELET COUNT 397 K/uL (150-450); RBC 3.83 M/uL (3.50-5.50); RDW-CV 15.2 % (11.9-14.6)
[2016-10-02 18:07] LABS: WBC 20.4 K/uL (4.0-11.0)
[2016-10-02 18:14] LABS: INR - (THERAPEUTIC) 0.98 (0.92-1.07); PROTIME 10.3 SECONDS (9.8-11.4); PTT 27 SECONDS (25-32)
[2016-10-02 18:15] LABS: PCO2 42 mmHg (35-45)
[2016-10-02 18:16] LABS: PO2 34 mmHg (80-90)
[2016-10-02 18:29] LABS: ALBUMIN 3.3 gm/dL (3.5-5.0); ALK PHOS 345 IU/L (33-138); ALT 25 IU/L (12-78); ANION GAP 13.5 (10.0-19.0); AST 29 IU/L (10-40); BLOOD UREA NITROGEN 27 mg/dL (6-24); CALCIUM 9.2 mg/dL (8.5-10.5); CHLORIDE 102 mMol/L (96-110); CO2 24 mMol/L (22-32); CPK 35 IU/L (35-332); CREATININE 1.4 mg/dL (0.6-1.3); ESTIMATED GFR (MDRD EQUATION) 49; POTASSIUM 4.5 mMol/L (3.7-5.1); SODIUM 135 mMol/L (135-145); TOTAL PROTEIN 6.1 g/dL (6.0-8.4)
[2016-10-02 18:31] LABS: TOTAL BILIRUBIN 1.8 mg/dL (0.0-1.5)
[2016-10-02] MEDS ORDERED: MOBIC15 MG PO (23:11)
--- NOTE | 2016-10-03 00:12 | NUR ---
Patient admitted to PCU from ER at 2054. Patient lives at home alone. Patient fell in bathroom on the morning of 10/02/16. Son found patient at home on the bathroom floor called EMS and was transported to [facility] ER. Head CT was negative. Bilateral knee x-rays done, no issues. Patient currently has UTI and had been seeing Dr. Wright to treat it. Lactate was 1.7, Procalcitonin was 1.06, WBC was 20.4, patient admitted to PCU for sepsis. Patient's medical history includes HTN, BPH, recurrent UTIs, Gaucher's disease, GERD, Vitamin B deficiency, and arthritis. Patient is resting comfortably at this time.
--- NOTE | 2016-10-03 05:14 | NUR ---
Significant Event: Patient is alert and oriented x 3. Forgetful. [place]. VSS on 2L of O2. HRs in the 50s-70s. SBPs 109-1 teens. Afebrile. Patient has not ambulated this shift. Voids per urinal. Left forearm IV, saline locked. Receiving intermittent IV antibiotics. Denies any pain. Skin tears to bilateral arms, dressings are clean, dry, and intact. Patient is pleasant and cooperative with cares. Follow up: Right upper quadrant ultrasound today due to elevated liver enzymes. Continue to monitor.
[2016-10-03 05:56] LABS: BASOPHIL % 0.1 %; EOSINOPHIL # 0.1 K/uL (0.0-0.5); EOSINOPHIL % 0.4 %; HEMATOCRIT 32.5 % (33.0-50.0); HEMOGLOBIN 11.1 g/dL (11.0-16.0); IMMATURE GRANULOCYTE # 0.1 K/uL (0.0-0.3); IMMATURE GRANULOCYTE % 0.4 %; LYMPHOCYTE # 2.1 K/uL (0.8-4.0); LYMPHOCYTE % 13.9 %; MCH 34.9 pg (27.0-34.0); MCHC 34.2 gm/dL (32.0-36.5); MCV 102.2 fl (83.0-98.0); MONOCYTE # 1.8 K/uL (0.0-1.0); MONOCYTE % 12.1 %; MPV 9.4 fl (9.4-12.4); NEUTROPHIL # (ANC) 10.9 K/uL (1.4-9.0); NEUTROPHIL % 73.1 %; NRBC % 0 /100WBC (0-0.00); PLATELET COUNT 396 K/uL (150-450); RBC 3.18 M/uL (3.50-5.50); RDW-CV 15.2 % (11.9-14.6); WBC 14.9 K/uL (4.0-11.0)
[2016-10-03 06:20] LABS: ANION GAP 10.7 (10.0-19.0); CREATININE 1.2 mg/dL (0.6-1.3); POTASSIUM 4.7 mMol/L (3.7-5.1)
[2016-10-03 11:36] LABS: ALBUMIN 2.6 gm/dL (3.5-5.0); TOTAL PROTEIN 5.3 g/dL (6.0-8.4)
[2016-10-03 11:38] LABS: TOTAL BILIRUBIN 1.2 mg/dL (0.0-1.5)
--- NOTE | 2016-10-03 17:59 | NUR ---
Significant Event: VSS ON RA. WEARS 2L/NC AT NIGHT D/T HYPOXIA. TYLENOL 1 TAB 325MG GIVEN THIS AM PER PATIENT REQUEST FOR RIGHT KNEE PAIN. STATES PAIN TOLERABLE REST OF DAY. 1PA WITH WALKER AND GAIT BELT TO CHAIR AND BATHROOM. ROCEPHIN DOSE CHANGED AND GIVEN VIA L) POST FA PIV. Follow up: LABS IN AM. CONT TO MONITOR PER PLAN OF CARE
--- NOTE | 2016-10-04 04:25 | NUR ---
Significant Event: Patient is alert and oriented x 3. Forgetful. VSS on room air. HRs in the 50s-60s. SBPs in the 150s-170. Afebrile. Up with 1 assist, walker, and gait belt. Voiding well. BM x 3 this shift. Skin tears to right and left forearm, dressings are intact. Tylenol given at 2209 for pain. Left forearm IV, saline locked. Receiving intermittent IV antibiotics. Patient is pleasant and cooperative with cares. Follow up:
--- NOTE | 2016-10-04 13:44 | NUR ---
[id number] Introduced self and CM role to Johnathon. Johnathon tells me that he lives alone, in [place], and it is his plan to return there when he is medically able to do so. Johnathon states that he has two sons that live here in town that help him out if he needs it. Johnathon is seen by for a PCP, but also sees' Dr.John Velez from the [place] as a PCP as well. [facility], but for [facility] term supplies, he gets them filled at [facility] to [facility] ones [facility]. We visitied about him living alone and if he felt like he would benifit from some [facility] services. He tells me that he would be open to this and has had [facility] in the past so he would be fine with going with them again if he needed HHC when he was dismissed. Johnathon also tells me that he has a cane, FWW and crutches to use at home to get around with. Denies having any other DME needs at this time. F2F was left on the chart for MD to fill out if he felt like HHC was needed upon dismissal. I also phoned over initial referral information to Karyn at [facility] on Johnathon. Let her know that I would keep her updated as to when Johnathon would be dimissing to home so they could follow up with him post discharge. She states that Nadira from [facility] will come up to obtain information off of his chart for the referral later today. CM to continue to follow and assit. Plan home. Johnathon says his sons' will take him home when he is cleared to dismiss.
--- NOTE | 2016-10-04 16:30 | NUR ---
Patient is A&Ox3. Cooperative with cares. Up with stand by assist. Lisinopril restarted in hospital 10mg for elevated BP's. VSS on R/A. IV to left anterior forearm SL with good blood return. Runs HR from 50-60s. BMx3 this shift. Soft and brown. WOC change dressing on forearms from skin tears. C/D/I. Receiving intermittent antibiotics. Possible discharge tomorrow.
[2016-10-05 03:46] LABS: BASOPHIL # 0.1 K/uL (0.0-0.2); BASOPHIL % 0.5 %; EOSINOPHIL # 0.1 K/uL (0.0-0.5); EOSINOPHIL % 0.7 %; HEMATOCRIT 35.8 % (33.0-50.0); HEMOGLOBIN 12.4 g/dL (11.0-16.0); IMMATURE GRANULOCYTE % 0.3 %; LYMPHOCYTE # 2.4 K/uL (0.8-4.0); LYMPHOCYTE % 26.5 %; MCH 34.8 pg (27.0-34.0); MCHC 34.6 gm/dL (32.0-36.5); MCV 100.6 fl (83.0-98.0); MONOCYTE # 1.3 K/uL (0.0-1.0); MONOCYTE % 13.8 %; MPV 9.5 fl (9.4-12.4); NEUTROPHIL # (ANC) 5.3 K/uL (1.4-9.0); NEUTROPHIL % 58.2 %; NRBC % 0 /100WBC (0-0.00); PLATELET COUNT 413 K/uL (150-450); RBC 3.56 M/uL (3.50-5.50); RDW-CV 14.8 % (11.9-14.6); WBC 9.1 K/uL (4.0-11.0)
[2016-10-05 04:04] LABS: ALK PHOS 293 IU/L (33-138); ALT 22 IU/L (12-78); ANION GAP 10.9 (10.0-19.0); AST 20 IU/L (10-40); BLOOD UREA NITROGEN 18 mg/dL (6-24); CALCIUM 9.3 mg/dL (8.5-10.5); CHLORIDE 112 mMol/L (96-110); CO2 24 mMol/L (22-32); CREATININE 0.8 mg/dL (0.6-1.3); ESTIMATED GFR (MDRD EQUATION) > 60; POTASSIUM 3.9 mMol/L (3.7-5.1); SODIUM 143 mMol/L (135-145); TOTAL PROTEIN 5.9 g/dL (6.0-8.4)
[2016-10-05 04:05] LABS: TOTAL BILIRUBIN 0.6 mg/dL (0.0-1.5)
--- NOTE | 2016-10-05 05:52 | NUR ---
Significant Event: DENIES PAIN ALL NIGHT. SLIGHTLY UNSTEADY GAIT WITH A DRAGGING OF THE R) LEG (OLD FRACTURE). VOIDING WELL PER URINAL. SBP IN THE 170s ALL NIGHT. Follow up: HOME TODAY.
--- NOTE | 2016-10-05 12:17 | NUR ---
1107 Stopped by to see if Johnathon was going to be dismissed today. Per RN Lissette, doctor has not rounded yet but she thinks that he might be able to go later this afternoon. Asked that she keep me updated so I could line up [facility] for Johnathon when he goes home if MD fills out the F2F and deems it needed for Janette upon dismissal. Lissette tells me she will keep me updated. CM to continue to follow and assist.
[2016-10-05] MEDS ORDERED: AMPICILLIN TRI500 MG PO (14:15)
[2016-10-05] MEDS ORDERED: DIFLUCAN100 MG PO (14:42)
--- NOTE | 2016-10-05 14:58 | NUR ---
DISMISSAL NOTE: PATIENT VSS STABLE ON R/A. DISCHARGE INSTRUCTIONS GIVEN AND IV WAS D/DANIELA. PATIENT WAS IN A HURRY TO LEAVE AND DENIED GOING THROUGH THE DISCHARGE INSTRUCTIONS BUT VERBALIZED UNDERSTANDING OF INSTRUCTIONS AND FOLLOW UP APPOINTMENTS MADE. GRABIEL EDUCATION INFORMATION ON NEW MEDICATION WAS GIVEN. PERSCRIPTIONS GIVEN. LEAVES BY WHEELCHAIR. WILL FOLLOW UP WITH HOME HEALTH.
== END 2016-10-05 14:45 | disposition home health service (06) | DRG 871 ==
LOC: GACC 17:31 → GPCU 20:13
PROVIDERS: Family Medicine; Internal Medicine; Nurse Practitioner Family; ADMIT Internal Medicine
DX: A41.9 Sepsis, unspecified organism (principal); K83.1 Obstruction of bile duct; N17.9 Acute kidney failure, unspecified; N10 Acute pyelonephritis; R65.20 Severe sepsis without septic shock; E75.22 Gaucher disease; N40.1 Benign prostatic hyperplasia with lower urinary tract symptoms; R33.8 Other retention of urine; I10 Essential (primary) hypertension; K52.9 Noninfective gastroenteritis and colitis, unspecified; S00.31XA Abrasion of nose, initial encounter; W18.30XA Fall on same level, unspecified, initial encounter; Z91.81 History of falling; Y92.012 Bathroom of single-family (private) house as the place of occurrence of the external cause
CPT/HCPCS: J0696; J1450; J1650; J2001; J7030; J7040; J7050; J7120

== ENCOUNTER → 2016-10-02 | Outpatient (CLI) | payer MEDICARE, BC | END | disposition disaster alternative care site (69) | LOC: GAMB 17:07 | DX: R55 Syncope and collapse (principal); S51.811A Laceration without foreign body of right forearm, initial encounter; S61.511A Laceration without foreign body of right wrist, initial encounter; M54.5 Low back pain; R42 Dizziness and giddiness; R53.1 Weakness; Z79.899 Other long term (current) drug therapy; W01.0XXA Fall on same level from slipping, tripping and stumbling without subsequent striking against object, initial encounter | CPT/HCPCS: A0422; A0425; A0427 ==